=== PATIENT | female | born 1960 | race Caucasian/White ===

== ENCOUNTER → 2018-06-02 | Outpatient (CLI) | payer MEDICAID ==
[~2018-06-02] MED LIST: DIAZ10TA4 PO; HYDR-3307 PO; KETO15CR2 TP; OXYC10TA6 PO; PRAZ1CAP2 PO; PREG75CA PO; QUET400T4 PO; QUET50TA5 PO; SERT100T PO; TIZA4CAP PO; ZOLP10TA PO
[2018-06-02 16:12] LABS: MEAN CORPUSCULAR HGB CONC 30.4 g/dL (32.4-35.8); MEAN CORPUSCULAR VOLUME 65.8 fL (80-100); MEAN PLATELET VOLUME 7.2 fL (7.4-10.4); PLATELET COUNT 358 x10^3/uL (130-400); RED BLOOD COUNT 4.31 x10^6/uL (3.82-5.3); RED CELL DISTRIBUTION WIDTH 22.1 % (9.6-15.2)
[2018-06-02 16:18] LABS: MICROSCOPIC AUTO
[2018-06-02 16:21] LABS: ANION GAP 8 mmol/L (5-15); CALCIUM 8.4 mg/dL (8.5-10.1); CHLORIDE 112 mmol/L (98-107)
[2018-06-02 16:22] LABS: CULTURE INDICATED? YES
[2018-06-02 16:29] LABS: INTERNATIONAL NORMALIZED RATIO 0.96 (0.93-1.1); PROTHROMBIN TIME 9.9 Seconds (9.6-11.5)
[2018-06-02 16:39] LABS: HEMOGLOBIN A1C 5.9 % (4.2-6.3)
[2018-06-02 16:42] LABS: ANISOCYTOSIS 1+; BASOPHILS # (AUTO) 0.09 x10^3/uL (0-0.1); BASOPHILS % (AUTO) 2 % (0-1); EOSINOPHILS # (AUTO) 0.06 x10^3/uL (0-0.4); EOSINOPHILS % (AUTO) 1 % (1-7); LYMPHOCYTES # (AUTO) 2.72 x10^3/uL (1-3.4); LYMPHOCYTES % (AUTO) 47 % (22-44); MD MORPH REVIEW ONLY; MONOCYTES # (AUTO) 0.38 x10^3/uL (0.2-0.8); MONOCYTES % (AUTO) 7 % (2-9); NEUTROPHILS # (AUTO) 2.56 x10^3/uL (1.8-6.8); NEUTROPHILS % (AUTO) 44 % (42-75)
[2018-06-02 16:43] LABS: <PLATELET ESTIMATE> ADEQUATE; <PLT MORPHOLOGY> NORMAL PLT MORPH; MICROCYTOSIS 1+; POLYCHROMASIA 1+
== END | disposition home or self-care (01) ==
LOC: STAR 14:54
PROVIDERS: ATTEND Orthopaedic Surgery
DX: Z01.818 Encounter for other preprocedural examination (principal); T84.84XA Pain due to internal orthopedic prosthetic devices, implants and grafts, initial encounter; Z96.652 Presence of left artificial knee joint
CPT/HCPCS: 36415; 80048; 81001; 83036; 85025; 85610; 85730; 87077; 87081; 87086; 87147; 87186; 93005

== ENCOUNTER 2018-06-11 11:02 | Inpatient (IN) | payer MEDICAID ==
[~2018-06-11] VITALS: Ht 165.1 cm; Wt 73.5 kg
[2018-06-11] MEDS: QUETIAPINE 25MG TABLET PO SCH (09:00)
[~2018-06-11 11:02] MED LIST changes: +cloniDINE/PF 100 MCG/ML, 10 ML ONE
[2018-06-11] MEDS ORDERED: MIDAZOLAM 1 MG/ML, 2ML ONE (11:26)
[2018-06-11] MEDS ORDERED: FENTANYL PF 100 MCG/2ML ONE ×3 (11:26→15:06)
[2018-06-11] MEDS ORDERED: PROPOFOL 10 MG/ML, 20ML ONE (11:26)
[2018-06-11] MEDS ORDERED: DEXAMETHASONE 4 MG/ML, 1ML ONE ×2 (11:26)
[2018-06-11] MEDS ORDERED: SUCCINYLCHOLINE 20 MG/ML, 10ML ONE (11:26)
[2018-06-11] MEDS ORDERED: CEFAZOLIN 1,000 MG ONE ×2 (11:26)
[2018-06-11] MEDS ORDERED: LACTATED RINGERS 1,000 ML IV SCH (11:38)
[2018-06-11] MEDS ORDERED: VANCOMYCIN PER PHARMACY MC ONE (11:51)
[2018-06-11] MEDS ORDERED: ACETAMINOPHEN 500 MG TABLET PO ONE (12:00)
[2018-06-11] MEDS ORDERED: GABAPENTIN 300 MG CAPSULE PO ONE (12:00)
[2018-06-11] MEDS ORDERED: TRANEXAMIC ACID 100 MG/ML, 10ML ONE ×2 (12:07)
[2018-06-11] MEDS ORDERED: ROPIvacaine/PF 0.5%, 30 ML ONE (12:07)
[2018-06-11] MEDS ORDERED: VANCOMYCIN 1,000 MG ONE (12:07)
[2018-06-11] MEDS ORDERED: EPINEPHRINE 1 MG/ML, 1ML ONE (12:07)
[2018-06-11] MEDS ORDERED: KETOROLAC 60 MG/2 ML ONE (12:07)
[2018-06-11] MEDS ORDERED: hydrALAzine 20 MG/ML, 1ML IV PRN (13:00)
[2018-06-11] MEDS ORDERED: OXYcodone 5 MG/5 ML ORAL.SOL UDC PO PRN (13:00)
[2018-06-11] MEDS ORDERED: VANCOMYCIN 1,400 MG in SODIUM CHLORIDE 0.9% 250 ML IV ONE (13:00)
[2018-06-11] MEDS ORDERED: MIDAZOLAM 1 MG/ML, 2ML IV PRN (13:00)
[2018-06-11] MEDS ORDERED: LABETALOL 5MG/ML, 20ML IV PRN (13:00)
[2018-06-11] MEDS ORDERED: LORazepam 2 MG/ML, 1ML IVPush PRN (13:00)
[2018-06-11] MEDS ORDERED: ALBUTEROL SULFATE 2.5 MG/3 ML NPPB PRN (13:00)
[2018-06-11] MEDS ORDERED: MEPERIDINE/PF 25MG/0.5ML IVPush PRN (13:00)
[2018-06-11] MEDS ORDERED: MORPHINE SULFATE 4 MG/ML, 1ML IVPush PRN (13:00)
[2018-06-11] MEDS ORDERED: PROCHLORPERAZINE 5 MG/ML, 2ML IV PRN (13:00)
[2018-06-11] MEDS ORDERED: SCOPOLAMINE PATCH, 1.5MG PATCH.TD72 TD PRN (13:00)
[2018-06-11] MEDS ORDERED: ESMOLOL 100 MG/10 ML ONE (13:57)
[2018-06-11] MEDS ORDERED: ONDANSETRON 2MG/ML, 2ML ONE (14:38)
[2018-06-11] MEDS ORDERED: HYDROcodone/APAP 5/325 TABLET PO PRN (15:00)
[2018-06-11] MEDS ORDERED: ONDANSETRON 4 MG TABLET PO PRN (15:00)
[2018-06-11] MEDS ORDERED: MAGNESIUM HYDROXIDE 8%, 30ML UDC PO PRN (15:00)
[2018-06-11] MEDS ORDERED: SCOPOLAMINE PATCH, 1.5MG PATCH.TD72 TD ONE (15:00)
[2018-06-11] MEDS ORDERED: ONDANSETRON 2MG/ML, 2ML IV PRN (15:00)
[2018-06-11] MEDS ORDERED: SENNA/DOCUSATE TABLET PO PRN (15:00)
[2018-06-11] MEDS ORDERED: BISACODYL 10 MG SUPP PR PRN (15:00)
[2018-06-11] MEDS ORDERED: HYDROmorphone 1 MG/ML, 1ML IV PRN (15:00)
[2018-06-11] MEDS ORDERED: DIPHENHYDRAMINE 50 MG CAPSULE PO PRN (15:00)
[2018-06-11] MEDS ORDERED: OXYcodone 5 MG/5 ML ORAL.SOL UDC ONE (15:06)
[2018-06-11] MEDS ORDERED: HYDROmorphone 2 MG/ML, 1ML ONE (15:06)
[2018-06-11] MEDS: FENTANYL PF 100 MCG/2ML IV PRN ×2 (15:09→15:18)
[2018-06-11] MEDS: HYDROmorphone 1 MG/ML, 1ML IV PRN ×2 (15:13→15:22)
[2018-06-11] MEDS ORDERED: TRANEXAMIC ACID 100 MG/ML, 10ML IV SCH (15:30)
[2018-06-11] MEDS ORDERED: TRANEXAMIC ACID 1,000 MG in SODIUM CHLORIDE 0.9% 100 ML IVPB ONE (16:30)
[2018-06-11 16:45] VITALS: BP 108/62
[2018-06-11] MEDS: ASPIRIN 81 MG TABLET EC PO SCH (17:37)
[2018-06-11] MEDS: NS + 20MEQ KCL 1,000 ML IV SCH (17:37)
[2018-06-11] MEDS: TIZANIDINE 4MG TABLET PO SCH ×2 (17:43→20:00)
[2018-06-11] MEDS ORDERED: SODIUM CHLORIDE 0.9% 1,000ML IVBOLUS ONE ×2 (18:30→23:00)
[2018-06-11 18:45] VITALS: BP 82/56
[2018-06-11] MEDS: PRAZOSIN 1 MG CAPSULE PO SCH (19:48)
[2018-06-11] MEDS ORDERED: DIAZEPAM 5 MG TABLET ONE (19:54)
[2018-06-11] MEDS: QUETIAPINE 200 MG TABLET PO SCH (20:00)
[2018-06-11] MEDS: DIAZEPAM 10 MG TABLET PO SCH (20:00)
[2018-06-11] MEDS: PREGABALIN 75 MG CAPSULE PO SCH (20:00)
[2018-06-11] MEDS: ACETAMINOPHEN 650 MG/20.3 ML UDC PO PRN (20:00)
[2018-06-11] MEDS: CEFAZOLIN PMX 2GM/50ML 50 ML IVPB SCH (20:00)
[2018-06-11] MEDS: DOCUSATE 100 MG CAPSULE PO SCH (20:00)
[2018-06-12] VITALS (10 sets, daily range): BP systolic 81–121; BP diastolic 47–78
[2018-06-12] MEDS: ZOLPIDEM 5MG TABLET PO PRN (00:33)
[2018-06-12] MEDS: CEFAZOLIN PMX 2GM/50ML 50 ML IVPB SCH (04:11)
[2018-06-12] MEDS: ASPIRIN 81 MG TABLET EC PO SCH ×2 (05:06→16:07)
[2018-06-12] MEDS ORDERED: DEXAMETHASONE 4 MG/ML, 1ML IVPush SCH (06:00)
[2018-06-12] MEDS: DOCUSATE 100 MG CAPSULE PO SCH ×2 (09:00→20:52)
[2018-06-12] MEDS: DIAZEPAM 10 MG TABLET PO SCH ×2 (09:00→20:52)
[2018-06-12] MEDS: NS + 20MEQ KCL 1,000 ML IV SCH ×2 (09:04→23:41)
[2018-06-12] MEDS: OXYcodone IR 5MG TABLET PO PRN ×4 (09:05→20:51)
[2018-06-12] MEDS: SERTRALINE 100MG TABLET PO SCH (09:05)
[2018-06-12] MEDS: TIZANIDINE 4MG TABLET PO SCH ×3 (10:47→20:52)
[2018-06-12] MEDS: QUETIAPINE 25MG TABLET PO SCH (14:39)
[2018-06-12] MEDS ORDERED: DIAZEPAM 5 MG TABLET ONE (20:33)
[2018-06-12] MEDS: QUETIAPINE 200 MG TABLET PO SCH (20:51)
[2018-06-12] MEDS: PREGABALIN 75 MG CAPSULE PO SCH (20:52)
[2018-06-12] MEDS: PRAZOSIN 1 MG CAPSULE PO SCH (20:53)
[2018-06-13 01:15] VITALS: BP 108/71
[2018-06-13] MEDS: OXYcodone IR 5MG TABLET PO PRN ×2 (01:15→04:51)
[2018-06-13] MEDS: ZOLPIDEM 5MG TABLET PO PRN (01:36)
[2018-06-13] MEDS: ACETAMINOPHEN 650 MG/20.3 ML UDC PO PRN (04:51)
[2018-06-13] MEDS: ASPIRIN 81 MG TABLET EC PO SCH (05:58)
[2018-06-13] MEDS ORDERED: OXYcodone IR 5MG TABLET PO PRN ×2 (06:00→06:30)
[2018-06-13 07:38] VITALS: BP 151/92
[2018-06-13] MEDS ORDERED: TRAM50TA2 PO (07:38)
[2018-06-13] MEDS ORDERED: OXYC5CAP2 PO (07:38)
[2018-06-13] MEDS ORDERED: MELO7.5T31 PO (07:39)
[2018-06-13] MEDS ORDERED: DIAZEPAM 5 MG TABLET ONE (07:59)
[2018-06-13] MEDS: QUETIAPINE 25MG TABLET PO SCH (08:03)
[2018-06-13] MEDS: SERTRALINE 100MG TABLET PO SCH (08:03)
[2018-06-13] MEDS: TIZANIDINE 4MG TABLET PO SCH (08:03)
[2018-06-13] MEDS: DIAZEPAM 10 MG TABLET PO SCH (08:04)
[2018-06-13] MEDS: DOCUSATE 100 MG CAPSULE PO SCH (08:04)
== END 2018-06-13 13:10 | disposition home or self-care (01) | DRG 467 ==
LOC: ORIP 11:02 → 4NOR 16:29
PROVIDERS: ADMIT Orthopaedic Surgery; ATTEND Orthopaedic Surgery
PROC: 0SRD0J9 Replacement of Left Knee Joint with Synthetic Substitute, Cemented, Open Approach (ICD-10-PCS; 2018-06-11)
PROC: 0SPD0JZ Removal of Synthetic Substitute from Left Knee Joint, Open Approach (ICD-10-PCS; principal; 2018-06-11 13:30)
PROC: 30233N1 Transfusion of Nonautologous Red Blood Cells into Peripheral Vein, Percutaneous Approach (ICD-10-PCS; 2018-06-12)
DX: T84.023A Instability of internal left knee prosthesis, initial encounter (principal); D62 Acute posthemorrhagic anemia; T84.093A Other mechanical complication of internal left knee prosthesis, initial encounter; Y83.8 Other surgical procedures as the cause of abnormal reaction of the patient, or of later complication, without mention of misadventure at the time of the procedure; Y92.89 Other specified places as the place of occurrence of the external cause; Z96.652 Presence of left artificial knee joint; Z88.0 Allergy status to penicillin; Z88.2 Allergy status to sulfonamides
CPT/HCPCS: 36415; 85014; 85018; 86850; 86900; 86923; 87070; 87075; 87176; 87205; C1713; G0378; J0171; J0690; J1100; J1170; J1885; J2250; J2405; J2704; J2795; J3010; J3370; J3480; C1776; J0330; J0735; J7030; J7120; P9016